=== PATIENT | female | born 1965 | race Caucasian/White ===

== ENCOUNTER → 2018-12-01 | Outpatient (CLI) | payer SELFPAY ==
[2018-12-01 14:36] LABS: ALBUMIN 3.9 g/dL (3.5-5.0); CALCIUM 9.3 mg/dL (8.4-10.2); POTASSIUM 3.7 mmol/L (3.6-5.0); TOTAL BILIRUBIN 0.9 mg/dL (0.2-1.3); TOTAL PROTEIN 6.6 g/dL (6.3-8.2)
== END ==
LOC: LAB 14:12
PROVIDERS: Nurse Practitioner Family
DX: I10 Essential (primary) hypertension (principal)